=== PATIENT | male | born 1950 | race Hispanic/Latino ===

== ENCOUNTER 2016-11-24 09:42 | Outpatient (CLI) | payer OTHER ==
[2016-11-24 10:20] LABS: Blood Urea Nitrogen 15 mg/dL (9-20)
--- NOTE | 2016-11-24 11:43 | Magnetic Resonance Report ---
MRI scan of brain: History: Unspecified hearing loss. Technique: Multiplanar, multisequence images were obtained without and with contrast injection. Findings: Ventricles are normal in size and midline in location. No evidence of restricted diffusion in the cerebral hemispheres. No evidence of acute ischemia, hemorrhage or mass. No extra-axial fluid collection. Normal brainstem and cerebellum. There is focal areas of increased signal intensity identified at the left mastoid air cells predominantly with minimal in the right mastoid air cells on flair imaging and T2 weighted images. Mucosal edema of the right maxillary sinus. Following the injection of contrast no abnormal areas of enhancement is noted. Impression: No acute intracranial abnormality. Acute left mastoiditis with probable acute right mastoiditis. Sinus disease.
== END 2016-11-24 09:43 | disposition home or self-care (01) ==
LOC: MRI 09:42
PROVIDERS: ATTEND Otolaryngology
DX: H70.002 Acute mastoiditis without complications, left ear (principal); H91.92 Unspecified hearing loss, left ear; J32.0 Chronic maxillary sinusitis
CPT/HCPCS: 36415; 70553; 82565; 84520; A9577